=== PATIENT | female | born 1980 | race African-American/Black ===

== ENCOUNTER 2018-08-07 22:40 | Observation (INO) | payer MEDICAID ==
[~2018-08-07] VITALS: Ht 162.6 cm; Wt 83.9 kg
[2018-08-07] MEDS ORDERED: LACTATED RINGERS 1,000 ML IV SCH (23:15)
[2018-08-07] MEDS ORDERED: CITRIC ACID/SODIUM CITRATE SOLN 30ML UDC PO NR (23:15)
[2018-08-07] MEDS ORDERED: DEXT 5%/LACTATED RINGERS 1,000 ML IV SCH (23:15)
[2018-08-07] MEDS ORDERED: PNV1TABL50 MT (23:32)
[2018-08-08 00:15] LABS: BASOPHILS % 0.6 % (0.0-2.0); EOSINOPHILS % 2.6 % (0.0-5.0); HEMATOCRIT. 35.5 % (36.0-48.0); MEAN CORPUSCULAR HEMOGLOBIN 27.6 pg (28.0-32.0); MEAN CORPUSCULAR VOLUME 81.5 fL (81.0-99.0); MONOCYTES % 7.4 % (2.0-8.0); NEUTROPHILS % 67.4 % (40.0-76.0); PLATELET 245 x1000/uL (130-400); RED BLOOD CELL COUNT 4.35 mill/uL (4.2-5.4); RED CELL DISTRIBUTION WIDTH 15.1 % (11.6-14.6)
[2018-08-08 00:16] LABS: CLARITY URINE CLEAR (CLEAR); COLOR URINE YELLOW (YELLOW); KETONES URINE TRACE (NEGATIVE); LEUKOCYTE ESTERASE URINE NEGATIVE (NEGATIVE); NITRITE URINE NEGATIVE (NEGATIVE); OCCULT BLOOD URINE NEGATIVE (NEGATIVE); PH URINE 6.5 (4.5-8.0); PROTEIN URINE NEGATIVE (NEGATIVE); SPECIFIC GRAVITY URINE 1.005 (1.005-1.030); UROBILINOGEN URINE 0.2 E.U./dL (0.2-1.0)
[2018-08-08 00:36] LABS: CANNABINOID URINE SCREEN NEGATIVE (NEGATIVE); PHENCYCLIDINE URINE SCREEN NEGATIVE (NEGATIVE)
[2018-08-08 00:37] LABS: *AMPHETAMINES SCREEN URINE NEGATIVE (NEGATIVE); *BARBITURATES SCREEN URINE NEGATIVE (NEGATIVE); *BENZODIAZEPINES SCREEN URINE NEGATIVE (NEGATIVE); *COCAINE SCREEN URINE NEGATIVE (NEGATIVE)
[2018-08-08 00:38] LABS: METHADONE URINE SCREEN NEGATIVE (NEGATIVE)
[2018-08-08 00:39] LABS: CHLORIDE 105 mEq/L (98-107)
[2018-08-08 01:03] LABS: OPIATES URINE SCREEN NEGATIVE (NEGATIVE)
== END 2018-08-08 01:36 | disposition home or self-care (01) ==
LOC: 8 EST LDRP 22:40
PROVIDERS: ADMIT Specialist; ATTEND Specialist
DX: O26.892 Other specified pregnancy related conditions, second trimester (principal); R10.13 Epigastric pain; R19.7 Diarrhea, unspecified; M25.519 Pain in unspecified shoulder; R11.0 Nausea; Z3A.27 27 weeks gestation of pregnancy
CPT/HCPCS: 36415; 80053; 80305; 81003; 85025; 99281; G0378; 96360; 96361